=== PATIENT | female | born 1970 | race African-American/Black ===

== ENCOUNTER 2017-12-20 08:10 | Day surgery (SDC) | payer MEDICARE, MEDICAID ==
[2017-12-20 09:50] VITALS: BP 144/86; TEMP 96.6; BMI 29.2
--- NOTE | 2017-12-20 12:22 | RAD ---
CERVICAL SPINE FIVE VIEWS INCLUDING FLEXION AND EXTENSION LATERAL VIEWS: History: 47-year-old female with history of radiculopathy. FINDINGS: Anterior cervical fusion changes at C3-4, left ICD. C1 and C2 odontoid are obscured on the AP open mo uth view. No significant abnormal translation between flexion and extension. IMPRESSION: Cervical spondylosis. Anterior cervical fusion changes of C3-4. No significant acute abnormal transla tion between flexion and extension. POS: [facility]
--- NOTE | 2017-12-20 12:52 | RAD ---
LUMBAR SPINE: HISTORY: Radiculopathy. COMPARISON: None. FINDINGS: There is posterior spinal fusion and laminectomy changes at L3-L5 without diskectomy. Adequate locat ion of the disk spacers. There is SI joint fusion bilaterally. No significant listhesis. No hardware complication. Mild joint narrowing at the L5-S1 disk space with sclerosis. There is narrowing of the L2-L3 and L1-L2 spinous processes. IMPRESSION: Mild to moderate spondylosis. No acute abnormality. No evidence for hardware failure. POS: [facility]
--- NOTE | 2017-12-20 13:16 | RAD ---
LUMBAR MYELOGRAM: HISTORY: Radiculopathy. COMPARISON: None. TECHNIQUE: The patient was brought to the fluoroscopy suite. All questions were answered. A time out was perfo rmed. Informed consent was obtained. The patient's back was prepped and draped in a normal sterile fashion, and 2 mL of Lidocaine was inst illed into the superficial and deep soft tissues. Using a 22 gauge spinal needle, the thecal sac was accessed at the L4-L5 level, and 11 mL of contrast was instilled into the thecal sac. The patient t olerated the procedure well without complications. IMPRESSION: Technically successful fluoroscopic guided cervical and lumbar myelogram. CT to follow. POS: [facility]
--- NOTE | 2017-12-20 13:31 | CT ---
CT CERVICAL SPINE WITH CONTRAST: HISTORY: Neck pain. Radiculopathy. COMPARISON: None. FINDINGS: The cerebellar tonsils remain above the foramen magnum. The mastoids are clear. No cervical adenopa thy. The thyroid appears unremarkable. The lung apices are clear. There is ACDF hardware at C3-C4 without hardware complication. There is fusion of the C3-C4 disk. No fracture. Focal kyphosis at C4-C5 with low grade anterolisthesis, approximately 2 mm. There is narrowing of the atlantodental interval. There is chronic remodeling and thinning of the an terior arch of C1. Levels are as follows: C2-C3: Facets are normal. No significant neural foraminal or spinal canal narrowing. C3-C4: Prior diskectomy and fusion. There is some left uncinate process hypertrophy. Mild left-sindy ed neural foraminal narrowing. The spinal canal measures over a centimeter. C4-C5: There is 2 mm of anterolisthesis. There is mild narrowing of the facet joints. There is foc al abutment of the ventral cord against the C4-C5 disk due to the anterolisthesis. The spinal canal at this level measures over a centimeter. Mild left-sided neural foraminal narrowing due to uncinate process hypertrophy. C5-C6: Large anterior bridging osteophytes. The spinal canal is not narrowed. No significant neura l foraminal narrowing. C6-C7: Low grade uncinate process hypertrophy. No neural foraminal or spinal canal narrowing. IMPRESSION: 1. Intact anterior cervical diskectomy and fusion hardware at C3-C4 without hardware complication. 2. Focal mild kyphosis of C4-C5 with 2 mm of anterolisthesis causing some very low grade narrowing o f the ventral cerebrospinal fluid space. 3. Low grade left-sided neural foraminal narrowing at C3-C4 and C4-C5 due to the uncinate process hy pertrophy. POS: [facility]
--- NOTE | 2017-12-20 13:40 | CT ---
CT LUMBAR SPINE WITH CONTRAST: Date: 12/20/17 HISTORY: Back pain. Radiculopathy. COMPARISON: Radiographs from same day. FINDINGS: There is a hypodensity superior pole left kidney measuring fluid attenuation likely a cyst. No retrop eritoneal adenopathy. Mild bilateral paraspinal musculature atrophy. There is posterior spinal fusion L3-L5 without hardware complication. Bilateral SI joint effusion S1- S3. Levels are as follows: T12-L1: No significant neural foraminal or spinal canal narrowing. L1-2: Low grade left paracentral and lateral recess posterior disc protrusion. There is subsequent moderate left-sided neural foraminal narrowing. Spinal canal is not significantly narrowed. L2-3: Mild circumferential disc bulge and disc space height loss. Mild ligamentum flavum hypertrophy. Mild facet arthropathy. The spinal canal measures 8.0 mm. Mild left-sided neural foraminal narrowing. L3-4: Diskectomy changes and fusion. No spinal canal or neural foraminal narrowing. L4-5: Diskectomy changes and fusion. No significant neural foraminal or spinal canal narrowing. L5-S1: Diskectomy changes and fusion. No significant neural foraminal or spinal canal narrowing. IMPRESSION: 1. Mild spondylosis centered at L1-2 and L2-3. 2. Severe narrowing of the L3-4 and moderate narrowing of the L2-3 spinous processes with sclerosis and erosions. POS: [facility]
== END 2017-12-20 12:00 | disposition home or self-care (01) ==
LOC: RAD 08:10
PROVIDERS: ATTEND Neurological Surgery
PROC: B02B1ZZ Computerized Tomography (CT Scan) of Spinal Cord using Low Osmolar Contrast (ICD-10-PCS; principal; 2017-12-20)
DX: M47.22 Other spondylosis with radiculopathy, cervical region (principal); M47.26 Other spondylosis with radiculopathy, lumbar region; I42.8 Other cardiomyopathies; I10 Essential (primary) hypertension; E78.5 Hyperlipidemia, unspecified; J45.909 Unspecified asthma, uncomplicated; Z98.1 Arthrodesis status; Z79.52 Long term (current) use of systemic steroids; Z79.82 Long term (current) use of aspirin; Z79.899 Other long term (current) drug therapy
CPT/HCPCS: 62305; 72050; 72120; 72126; 72132

== ENCOUNTER 2018-03-07 07:47 | Outpatient (CLI) | payer MEDICARE, MEDICAID | END 2018-03-07 07:48 | disposition home or self-care (01) | LOC: BICULT 07:47 | PROVIDERS: ATTEND Internal Medicine | DX: N28.1 Cyst of kidney, acquired (principal) | CPT/HCPCS: 76770 ==

== ENCOUNTER 2018-11-14 10:43 | Outpatient (CLI) | payer MEDICARE, MEDICAID ==
--- NOTE | 2018-11-14 11:47 | RAD ---
TWO VIEWS ABDOMEN: Comparison: None. History: Constipation, abdominal pain. FINDINGS: Supine and upright views of the abdomen shows a nonspecific, nonobstructed bowel gas pattern. No sign ificant stool retention is seen. Extensive post-surgical changes are seen in the lumbar spine and sac roiliac joints. Cholecystectomy clips are seen. IMPRESSION: No evidence of constipation or obstruction. POS: [facility]
== END 2018-11-14 10:44 | disposition home or self-care (01) ==
LOC: BICRAD 10:43
PROVIDERS: ATTEND Physician Assistant Medical
DX: K59.00 Constipation, unspecified (principal); R10.84 Generalized abdominal pain
CPT/HCPCS: 74019

== ENCOUNTER 2019-02-19 07:44 | Outpatient (CLI) | payer MEDICARE, MEDICAID ==
--- NOTE | 2019-02-19 10:42 | CT ---
CT ABDOMEN AND PELVIS WITH IV CONTRAST: DATE: 02/19/2019. PROVIDED CLINICAL HISTORY: Abdominal pain. FINDINGS: There is trace right pleural fluid. There is subsegmental atelectasis at each lung base. Simple-appearing cyst is seen at the superior pole of the left kidney. The liver, spleen, pancreas, kidneys, and adrenal glands demonstrate an otherwise unremarkable CT appearance. Changes of prior cholecystectomy are seen. There is no bowel dilatation, inflammatory fat stranding, free fluid, or lymph node enlargement apparent. The uterus is not visualized and presumed surgically absent. There is no evidence for abdominal wall hernia. Postoperative changes involving the lumbar spine and both sacroiliac joints noted. There is no evide nce for a concerning lytic or blastic osseous lesion. The regional major vascular structures appear unremarkable. IMPRESSION: 1. Trace right pleural fluid. 2. No evidence for an acute process involving the abdomen and pelvis. POS: [facility]
== END 2019-02-19 07:45 | disposition home or self-care (01) ==
LOC: BICCT 07:44
PROVIDERS: ATTEND Surgery
DX: R10.9 Unspecified abdominal pain (principal); J94.8 Other specified pleural conditions
CPT/HCPCS: 74177

== ENCOUNTER 2019-05-29 06:45 | Day surgery (SDC) | payer MEDICARE, MEDICAID ==
[2019-05-28 15:29] VITALS: BMI 29.1
--- NOTE | 2019-05-29 09:16 | RAD ---
RIGHT HIP 2 VIEWS: Date: 05/29/19 HISTORY: Pain. FINDINGS: Hypertrophic osteophytosis changes are noted laterally. Evidence for an os acetabuli. Internal fixati on fusion changes of the right SI joint, as well as postoperative changes of the lumbar spine. No liu dence for acute fracture or dislocation. 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 Postsurgical changes of the lower lumbar spi ne and right SI joint. POS: [facility]
--- NOTE | 2019-05-29 09:35 | CT ---
Lumbar myelogram CT lumbar spine with contrast HISTORY: Worsening low back pain and right hip radiculopathy. Prior surgery. FINDINGS: After explaining the procedure and answering all questions, patient was placed on the fluor oscopy table in prone position and images obtained. Sterile technique, buffered local anesthesia, fluoroscopic guidance, and a posterior midline L4-5 approach were used to carefully advance a 22-gaug e spinal needle tip into the thecal sac. Approximately 10 cc of [id number]-[id number] contrast was carefully instilled into the thecal sac under fluoroscopic control and needle removed. Patient tolerated the pr ocedure well and was transferred to CT in good condition and eventually to the holding area for further monitoring. Fluoroscopy time 0.6 minutes FINDINGS: Vertebral body heights and alignment are maintained. Bilateral pedicle screws, vertical rods, and int erbody disc replacement material at the L3-4-5 levels. T12-L1: Mild osteophytosis. Central canal and neural foramina are patent. L1-2: Mild left posterior lung bilateral disc bulge is stable. Mild to moderate stenosis of the left neural foramen. L2-3: Mild posterior disc bulge and disc space narrowing. Circumferential degenerative changes. Mild to moderate stenosis of the central canal. Mild left foraminal stenosis. Similar to the previous exam. L3-4: Postoperative changes. Central canal and neural foramina are patent. L4-5: Postoperative changes. Central canal and neural foramina are patent. L5-S1: Postoperative changes. Central canal and neural foramina are patent. IMPRESSION: Postoperative and degenerative changes of the lumbar spine as detailed above. Mild to mod erate central canal stenosis at the L2-3 level. Findings are stable compared to 12/20/2017.
== END 2019-05-29 09:40 | disposition home or self-care (01) ==
LOC: RAD 06:45 → EDSTATUS 08:00 → RAD 09:40
PROVIDERS: ATTEND Neurological Surgery
PROC: B02B1ZZ Computerized Tomography (CT Scan) of Spinal Cord using Low Osmolar Contrast (ICD-10-PCS; principal; 2019-05-29)
DX: M48.061 Spinal stenosis, lumbar region without neurogenic claudication (principal); M51.16 Intervertebral disc disorders with radiculopathy, lumbar region; M47.26 Other spondylosis with radiculopathy, lumbar region; I10 Essential (primary) hypertension; J45.909 Unspecified asthma, uncomplicated; I42.9 Cardiomyopathy, unspecified; Z79.51 Long term (current) use of inhaled steroids; Z79.82 Long term (current) use of aspirin; Z79.899 Other long term (current) drug therapy; Z98.1 Arthrodesis status; Z98.890 Other specified postprocedural states
CPT/HCPCS: 62304; 72132

== ENCOUNTER 2021-10-26 07:54 | Outpatient (CLI) | payer MEDICARE, MEDICAID ==
[2021-10-26] MEDS ORDERED: Iopamidol 370 76% 100 ML VIAL ONE (11:37)
== END 2021-10-26 07:55 | disposition home or self-care (01) ==
LOC: CT 07:54
PROVIDERS: ATTEND Physician Assistant Medical
DX: R11.2 Nausea with vomiting, unspecified (principal); R14.0 Abdominal distension (gaseous); R10.13 Epigastric pain; R63.4 Abnormal weight loss
CPT/HCPCS: 74177; Q9967

== ENCOUNTER 2021-12-31 08:16 | Outpatient (CLI) | payer OTHER, MEDICAID ==
[2021-12-31 23:13] LABS: SARS-CoV-2 PCR by NAA Not Detected (NotDetected)
== END 2021-12-31 08:17 | disposition home or self-care (01) ==
LOC: LABBT 08:16
PROVIDERS: ATTEND Internal Medicine Gastroenterology
DX: Z20.822 Contact with and (suspected) exposure to COVID-19 (principal)
CPT/HCPCS: U0003; U0005

== ENCOUNTER 2022-01-04 10:12 | Day surgery (SDC) | payer OTHER, MEDICAID ==
[2022-01-01 09:36] VITALS: BMI 28.3
[2022-01-04] MEDS ORDERED: PROPOFOL 200 MG/20 ML VIAL ONE (12:22)
[2022-01-04] MEDS ORDERED: Lidocaine 1% PF 5 ML VIAL ONE (12:22)
== END 2022-01-04 13:30 | disposition home or self-care (01) ==
LOC: SDC 10:12
PROVIDERS: ATTEND Internal Medicine Gastroenterology
PROC: 3E0G8GC Introduction of Other Therapeutic Substance into Upper GI, Via Natural or Artificial Opening Endoscopic (ICD-10-PCS; principal; 2022-01-04)
DX: K31.84 Gastroparesis (principal); I11.0 Hypertensive heart disease with heart failure; I50.9 Heart failure, unspecified; E78.00 Pure hypercholesterolemia, unspecified; G47.30 Sleep apnea, unspecified; Z79.899 Other long term (current) drug therapy; Z95.810 Presence of automatic (implantable) cardiac defibrillator; Z98.1 Arthrodesis status
CPT/HCPCS: 43236; J0585; J2704

== ENCOUNTER 2022-05-12 07:53 | Outpatient (CLI) | payer OTHER, MEDICAID | END 2022-05-12 07:54 | disposition home or self-care (01) | LOC: NM 07:53 | PROVIDERS: ATTEND Internal Medicine Gastroenterology | DX: K31.84 Gastroparesis (principal); K59.09 Other constipation; R10.13 Epigastric pain | CPT/HCPCS: 78264; A9541 ==

== ENCOUNTER 2023-07-25 08:55 | Day surgery (SDC) | payer OTHER, MEDICAID ==
[2023-07-22 11:25] VITALS: BMI 23.5
[2023-07-25] MEDS ORDERED: PROPOFOL 60 ML ONE (10:32)
[2023-07-25] MEDS ORDERED: Lidocaine 2% PF 5 ML VIAL ONE (10:40)
== END 2023-07-25 11:50 | disposition home or self-care (01) ==
LOC: SDC 08:55
PROVIDERS: ATTEND Internal Medicine Gastroenterology
PROC: 0DJ08ZZ Inspection of Upper Intestinal Tract, Via Natural or Artificial Opening Endoscopic (ICD-10-PCS; principal; 2023-07-25)
DX: K31.84 Gastroparesis (principal); K59.00 Constipation, unspecified; K31.89 Other diseases of stomach and duodenum; J45.909 Unspecified asthma, uncomplicated; I11.0 Hypertensive heart disease with heart failure; I50.9 Heart failure, unspecified; E78.00 Pure hypercholesterolemia, unspecified; Z95.0 Presence of cardiac pacemaker; Z90.49 Acquired absence of other specified parts of digestive tract; Z79.899 Other long term (current) drug therapy
CPT/HCPCS: J2001; J2704

== ENCOUNTER 2023-08-09 08:07 | Outpatient (CLI) | payer OTHER, MEDICAID | END 2023-08-09 08:08 | disposition home or self-care (01) | LOC: MRI 08:07 | PROVIDERS: ATTEND Orthopaedic Surgery | DX: M75.102 Unspecified rotator cuff tear or rupture of left shoulder, not specified as traumatic (principal) ==

== ENCOUNTER 2023-10-18 13:39 | Outpatient (CLI) | payer OTHER, MEDICAID ==
[2023-10-18 14:42] LABS: #Monocytes 0.2 10x3/uL (0.0-1.1); #Neutrophils 4.4 10x3/uL (1.5-8.4); %Basophils 0.5 % (0.0-2.0); %Eosinophils 0.4 % (0.0-6.0); %Lymphocytes 19.1 % (18.0-47.0); %Monocytes 2.8 % (0.0-10.0); %Neutrophils 76.8 % (40.0-75.0); Hematocrit 38.9 % (34.9-44.5); Hemoglobin 13.1 g/dL (12.0-15.5); Mean Corpuscular HGB CONC 33.7 g/dL (32.0-36.0); Mean Corpuscular Hemoglobin 29.6 pg (27.0-33.0); Mean Corpuscular Volume 87.8 fl (81.6-98.3); Mean Platelet Volume 10.2 fl (7.4-10.4); Platelet Count 263 10x3/uL (150-450); RBC Distribution Width 13.5 % (11.5-14.5); Red Blood Cell (RBC) Count 4.43 10x6/uL (3.90-5.03); White Blood Cell (WBC) Count 5.7 10x3/uL (3.5-10.5)
[2023-10-18 14:56] LABS: ALT (SGPT) 8 U/L (8-55); AST (SGOT) 13 U/L (5-34); Albumin 4.6 g/dL (3.5-5.0); Alkaline Phosphatase 91 U/L (40-110); Anion Gap 12 mmol/L (10-20); BUN (Urea Nitrogen) 14 mg/dL (9.8-20.1); Bilirubin, Total 0.7 mg/dL (0.2-1.2); Calc. Creatinine Clearance 0 mL/min (70-130); Calcium 9.6 mg/dL (7.8-10.44); Carbon Dioxide 27 mmol/L (22-29); Chloride 108 mmol/L (98-107); Estimated GFR 68; Globulin 2.4 g/dL (2.4-3.5); Glucose 98 mg/dL (70-105); Potassium 3.5 mmol/L (3.5-5.1); Sodium 143 mmol/L (136-145)
[2023-10-19 12:56] LABS: Hemoglobin A1c 5.5 % (4.0-6.0)
== END 2023-10-18 13:40 | disposition home or self-care (01) ==
LOC: LABBT 13:39
PROVIDERS: ATTEND Specialist
DX: Z01.818 Encounter for other preprocedural examination (principal); K31.84 Gastroparesis
CPT/HCPCS: 80053; 83036; 85025; 93005; 93010

== ENCOUNTER 2023-10-18 14:00 | Inpatient (IN) | payer OTHER, MEDICAID ==
[2023-11-01] MEDS ORDERED: CEFAZOLIN 2 GM VIAL ONE (07:27)
[2023-11-01] MEDS ORDERED: Ketorolac Tromethamine 30 MG (1 mL) VIAL ONE (07:27)
[2023-11-01] MEDS ORDERED: Heparin 5,000 UNITS/ML VIAL ONE (07:27)
[2023-11-01] MEDS ORDERED: Acetaminophen 500 MG TAB ONE (07:27)
[2023-11-01] MEDS ORDERED: Sodium Chloride 0.9% 100 ML ONE (07:28)
[2023-11-01] MEDS ORDERED: Bupivacaine PF 0.5% 30 ML VIAL ONE (08:35)
[2023-11-01] MEDS ORDERED: fentaNYL 50 mcg/mL 1 mL Vial ONE (08:35)
[2023-11-01] MEDS ORDERED: Midazolam HCl 2 mg/2 ml Vial ONE ×2 (08:35→10:13)
[2023-11-01] MEDS ORDERED: Morphine 2 MG/ML VIAL ONE (08:41)
[2023-11-01] MEDS ORDERED: EPINEPHrine 1 MG/ML VIAL ONE (08:47)
[2023-11-01] MEDS ORDERED: Lidocaine 1% (PF) 30 ML VIAL ONE (08:48)
[2023-11-01] MEDS ORDERED: Ondansetron PF 4 MG/2 ML Vial ONE (10:12)
[2023-11-01] MEDS ORDERED: Rocuronium Bromide 10 MG/ML (10ML VIAL) ONE (10:12)
[2023-11-01] MEDS ORDERED: Dexamethasone 4 mg/ml Vial ONE (10:12)
[2023-11-01] MEDS ORDERED: Esmolol 100 MG/10 ML VIAL ONE (10:12)
[2023-11-01] MEDS ORDERED: PROPOFOL 20 ML ONE (10:13)
[2023-11-01] MEDS ORDERED: fentaNYL PF 100 MCG/2 ML SYRINGE ONE (10:13)
[2023-11-01] MEDS ORDERED: HYDROmorphone 2 MG/ML VIAL ONE (11:01)
[2023-11-01] MEDS ORDERED: Phenylephrine 10 MG/ML VIAL ONE (11:07)
[2023-11-01] MEDS ORDERED: ePHEDrine Sulfate 50 MG/10 ML VIAL ONE (11:31)
[2023-11-01] MEDS ORDERED: SUGAMMADEX SODIUM 200 MG/2 ML VIAL ONE (13:34)
[2023-11-01] MEDS ORDERED: Dextrose 5% in Water 1,000 ML IV PRN (13:46)
[2023-11-01] MEDS ORDERED: Dextrose 50% Abboject 50 ML SYRINGE SLOW IVP PRN (13:46)
[2023-11-01] MEDS ORDERED: hydrALAZINE 20 MG/ML VIAL SLOW IVP PRN (13:46)
[2023-11-01] MEDS ORDERED: tiZANidine HCl 4 MG TAB PO PRN (13:46)
[2023-11-01] MEDS ORDERED: Promethazine HCl 25 MG/ML VIAL IM PRN (13:46)
[2023-11-01] MEDS ORDERED: Glucagon 1 MG/ML KIT IM PRN (13:46)
[2023-11-01] MEDS ORDERED: Morphine 2 MG/ML VIAL SLOW IVP PRN (13:46)
[2023-11-01] MEDS ORDERED: Ipratropium/Albuterol 3 ML NEB NEB PRN (13:46)
[2023-11-01] MEDS ORDERED: Ondansetron PF 4 MG/2 ML Vial IVP PRN (13:46)
[2023-11-01] MEDS ORDERED: diphenhydrAMINE 50 MG/ML VIAL IVP PRN (13:46)
[2023-11-01] MEDS ORDERED: D5 1/2 NS w/20 mEq KCL 1,000 ML ONE (14:18)
[2023-11-01] MEDS ORDERED: HYDROmorphone 0.5 MG/0.5 ML SYRINGE ONE (14:34)
[2023-11-01] MEDS ORDERED: Albuterol 2.5 MG (3 mL) NEB NEB PRN (15:13)
[2023-11-01 17:17] VITALS: BMI 21.3
[2023-11-01] MEDS: Ketorolac Tromethamine 30 MG (1 mL) VIAL IVP SCH ×2 (17:27→23:05)
[2023-11-01] MEDS: Mometasone 200 MCG/Formoterol 5 MCG 120 PUFF INHALER INH SCH (18:18)
[2023-11-01] MEDS: D5 1/2 NS w/20 mEq KCL 1,000 ML IV SCH (18:48)
[2023-11-01] MEDS: Isosorbide Dinitrate 20 MG TAB PO SCH ×2 (18:48→21:10)
[2023-11-01] MEDS: Carvedilol 25 MG TAB PO SCH (20:08)
[2023-11-01] MEDS: Atorvastatin Calcium 20 MG TAB PO SCH (20:08)
[2023-11-01] MEDS: Morphine 4 MG/ML VIAL SLOW IVP PRN (20:09)
[2023-11-01] MEDS: Sacubitril 49 MG/Valsartan 51 MG TABLET PO SCH (21:10)
[2023-11-01] MEDS: Minoxidil 2.5 MG TAB PO SCH (21:10)
[2023-11-01] MEDS: Acetaminophen 325 MG (10.15 ML) UDCUP PO PRN (23:05)
[2023-11-02 04:54] LABS: #Eosinphils 0.1 thou/uL (0.0-0.7); #Monocytes 0.8 thou/uL (0.11-0.59); #Neutrophils 14.8 thou/uL (1.40-6.50); %Basophils 0.2 % (0.0-1.0); %Eosinophils 0.8 % (0.0-10.0); %Lymphocytes 8.7 % (21.0-51.0); %Monocytes 4.5 % (0.0-10.0); %Neutrophils 85.4 % (42.0-75.0); Hematocrit 36.1 % (36.0-47.0); Hemoglobin 11.9 g/dL (12.0-16.0); Mean Corpuscular Hemoglobin 29.8 pg (27.0-31.0); Mean Corpuscular Volume 90.5 fl (78.0-98.0); Mean Platelet Volume 11.6 fL (7.4-10.4); Platelet Count 146 10x3/uL (130-400); RBC Distribution Width 13.7 % (11.5-14.5); Red Blood Cell (RBC) Count 3.99 mill/uL (4.20-5.40); White Blood Cell (WBC) Count 17.3 10x3/uL (4.8-10.8)
[2023-11-02 05:25] LABS: Anion Gap 12 mmol/L (10-20); BUN (Urea Nitrogen) 11 mg/dL (9.8-20.1); Calc. Creatinine Clearance 68 mL/min (70-130); Calcium 8.2 mg/dL (7.8-10.44); Carbon Dioxide 22 mmol/L (22-29); Chloride 111 mmol/L (98-107); Estimated GFR 71; Glucose 109 mg/dL (70-105); Potassium 3.6 mmol/L (3.5-5.1); Sodium 141 mmol/L (136-145)
[2023-11-02] MEDS ORDERED: Non-Formulary Item 1 EACH (Losartan Potassium [Losartan Potassium] 100 MG Tablet) PO SCH (09:00)
[2023-11-02] MEDS ORDERED: Linaclotide [Linzess] 290 MCG Capsule PO SCH (09:00)
[2023-11-02] MEDS: Enoxaparin 40 MG (0.4 mL) SYRINGE SC SCH (10:27)
[2023-11-02] MEDS: DULoxetine 60 MG CAP PO SCH (10:29)
[2023-11-02] MEDS: Glycopyrrolate 1 MG TAB PO SCH (10:39)
[2023-11-02] MEDS: Amlodipine 10 MG TAB PO SCH (10:39)
[2023-11-02] MEDS: Spironolactone 100 MG TAB PO SCH (10:40)
[2023-11-02 13:24] VITALS: BP 136/83; TEMP 98.7
[2023-11-02] MEDS: Pantoprazole 40 MG VIAL IVP SCH (15:14)
== END 2023-11-02 15:15 | disposition home or self-care (01) | DRG 327 ==
LOC: SURG A 11-01 06:55 → SURG B 11-01 17:16
PROVIDERS: ADMIT Specialist; ATTEND Specialist
PROC: 0D164ZA Bypass Stomach to Jejunum, Percutaneous Endoscopic Approach (ICD-10-PCS; principal; 2023-11-01)
PROC: 8E0W4CZ Robotic Assisted Procedure of Trunk Region, Percutaneous Endoscopic Approach (ICD-10-PCS; 2023-11-01)
DX: K31.84 Gastroparesis (principal); I42.8 Other cardiomyopathies; E78.5 Hyperlipidemia, unspecified; J45.909 Unspecified asthma, uncomplicated; K59.00 Constipation, unspecified; I50.9 Heart failure, unspecified; I11.0 Hypertensive heart disease with heart failure; M19.90 Unspecified osteoarthritis, unspecified site; M54.12 Radiculopathy, cervical region; E78.00 Pure hypercholesterolemia, unspecified; M47.896 Other spondylosis, lumbar region; Z95.810 Presence of automatic (implantable) cardiac defibrillator; Z90.710 Acquired absence of both cervix and uterus; Z79.82 Long term (current) use of aspirin; Z90.49 Acquired absence of other specified parts of digestive tract
CPT/HCPCS: 36415; 80048; 85025; 94664; 94760; C1889; C9113; J0171; J0665; J1100; J1170; J1644; J1650; J1885; J2001; J2250; J2270; J2272; J2371; J2405; J2704; J3010; J3480; J3490

== ENCOUNTER 2023-11-03 07:47 | Observation (INO) | payer OTHER, MEDICAID ==
[2023-11-03] MEDS ORDERED: Ondansetron PF 4 MG/2 ML Vial ONE (08:14)
[2023-11-03] MEDS ORDERED: Morphine 4 MG/ML VIAL ONE (08:16)
[2023-11-03 08:30] LABS: #Eosinphils 0.2 thou/uL (0.0-0.7); #Monocytes 0.7 thou/uL (0.11-0.59); %Basophils 0.2 % (0.0-1.0); %Eosinophils 1.4 % (0.0-10.0); %Monocytes 6.5 % (0.0-10.0); %Neutrophils 75.7 % (42.0-75.0); Hematocrit 37.2 % (36.0-47.0); Hemoglobin 12.5 g/dL (12.0-16.0); Mean Corpuscular HGB CONC 33.6 g/dL (32.0-36.0); Mean Corpuscular Hemoglobin 30.2 pg (27.0-31.0); Mean Corpuscular Volume 89.9 fl (78.0-98.0); Mean Platelet Volume 10.4 fL (7.4-10.4); Platelet Count 181 10x3/uL (130-400); RBC Distribution Width 13.7 % (11.5-14.5); Red Blood Cell (RBC) Count 4.14 mill/uL (4.20-5.40); White Blood Cell (WBC) Count 10.5 10x3/uL (4.8-10.8)
[2023-11-03 08:43] LABS: INR-International Normal Ratio 1.2
[2023-11-03 08:44] LABS: PTT 32.5 sec (22.9-36.1)
[2023-11-03 08:52] LABS: ALT (SGPT) 540 U/L (8-55); AST (SGOT) 413 U/L (5-34); Albumin 3.9 g/dL (3.5-5.0); Alkaline Phosphatase 85 U/L (40-110); Anion Gap 15 mmol/L (10-20); BUN (Urea Nitrogen) 13 mg/dL (9.8-20.1); Bilirubin, Total 1.1 mg/dL (0.2-1.2); Calc. Creatinine Clearance 0 mL/min (70-130); Chloride 108 mmol/L (98-107); Estimated GFR 72; Globulin 2.8 g/dL (2.4-3.5); Glucose 83 mg/dL (70-105); Lipase 18 U/L (8-78); Potassium 3.4 mmol/L (3.5-5.1); Protein, Total 6.7 g/dL (6.0-8.3); Sodium 143 mmol/L (136-145)
[2023-11-03 08:58] LABS: Carbon Dioxide 23 mmol/L (22-29)
[2023-11-03] MEDS ORDERED: hydrALAZINE 20 MG/ML VIAL SLOW IVP PRN (11:32)
[2023-11-03] MEDS ORDERED: Promethazine HCl 25 MG/ML VIAL IM PRN (11:32)
[2023-11-03] MEDS ORDERED: Dextrose 50% Abboject 50 ML SYRINGE SLOW IVP PRN (11:32)
[2023-11-03] MEDS ORDERED: Dextrose 5% in Water 1,000 ML IV PRN (11:32)
[2023-11-03] MEDS ORDERED: Morphine 2 MG/ML VIAL SLOW IVP PRN (11:32)
[2023-11-03] MEDS ORDERED: Acetaminophen 325 MG (10.15 ML) UDCUP PO PRN (11:32)
[2023-11-03] MEDS ORDERED: Glucagon 1 MG/ML KIT IM PRN (11:32)
[2023-11-03] MEDS ORDERED: diphenhydrAMINE 50 MG/ML VIAL IVP PRN (11:32)
[2023-11-03 11:45] VITALS: BMI 22.7
[2023-11-03] MEDS ORDERED: Albuterol 2.5 MG (3 mL) NEB NEB PRN (12:07)
[2023-11-03] MEDS ORDERED: Nitroglycerin 0.4 MG TAB 1 EACH SL PRN (12:09)
[2023-11-03] MEDS: Ketorolac Tromethamine 30 MG (1 mL) VIAL IVP SCH (12:44)
[2023-11-03] MEDS: D5 1/2 NS w/20 mEq KCL 1,000 ML IV SCH (12:52)
[2023-11-03] MEDS: Isosorbide Dinitrate 20 MG TAB PO SCH (15:54)
[2023-11-03] MEDS: Mometasone 200 MCG/Formoterol 5 MCG 120 PUFF INHALER INH SCH (18:48)
[2023-11-03] MEDS: Atorvastatin Calcium 20 MG TAB PO SCH (20:44)
[2023-11-03] MEDS: Minoxidil 2.5 MG TAB PO SCH (20:44)
[2023-11-03] MEDS: Pantoprazole 40 MG VIAL IVP SCH (20:45)
[2023-11-03] MEDS: Enoxaparin 40 MG (0.4 mL) SYRINGE SC SCH (20:48)
[2023-11-03] MEDS: Ondansetron PF 4 MG/2 ML Vial IVP PRN (20:58)
[2023-11-03] MEDS: Sacubitril 49 MG/Valsartan 51 MG TABLET PO SCH (23:30)
[2023-11-03] MEDS: Carvedilol 25 MG TAB PO SCH (23:30)
[2023-11-04 04:04] LABS: #Eosinphils 0.2 thou/uL (0.0-0.7); #Monocytes 0.7 thou/uL (0.11-0.59); #Neutrophils 3.6 thou/uL (1.40-6.50); %Basophils 0.3 % (0.0-1.0); %Eosinophils 3.9 % (0.0-10.0); %Lymphocytes 26.6 % (21.0-51.0); %Monocytes 11.9 % (0.0-10.0); %Neutrophils 57.1 % (42.0-75.0); Hematocrit 29.6 % (36.0-47.0); Hemoglobin 9.9 g/dL (12.0-16.0); Mean Corpuscular HGB CONC 33.4 g/dL (32.0-36.0); Mean Corpuscular Hemoglobin 30.5 pg (27.0-31.0); Mean Corpuscular Volume 91.1 fl (78.0-98.0); Mean Platelet Volume 10.1 fL (7.4-10.4); Platelet Count 152 10x3/uL (130-400); RBC Distribution Width 13.6 % (11.5-14.5); Red Blood Cell (RBC) Count 3.25 mill/uL (4.20-5.40); White Blood Cell (WBC) Count 6.2 10x3/uL (4.8-10.8)
[2023-11-04 04:35] LABS: Anion Gap 9 mmol/L (10-20); BUN (Urea Nitrogen) 13 mg/dL (9.8-20.1); Calc. Creatinine Clearance 74 mL/min (70-130); Calcium 8.3 mg/dL (7.8-10.44); Carbon Dioxide 24 mmol/L (22-29); Chloride 109 mmol/L (98-107); Estimated GFR 76; Glucose 101 mg/dL (70-105); Potassium 3.1 mmol/L (3.5-5.1); Sodium 139 mmol/L (136-145)
[2023-11-04] MEDS: DULoxetine 60 MG CAP PO SCH (08:28)
[2023-11-04] MEDS: Aspirin Chewable 81 MG TAB PO SCH (08:28)
[2023-11-04 08:29] VITALS: BP 115/72; TEMP 98.2
[2023-11-04] MEDS: Potassium Bicarbonate/Cit Ac 25 MEQ TAB PO SCH (08:29)
== END 2023-11-04 09:44 | disposition home or self-care (01) ==
LOC: ERS 07:47 → SJJU 09:34
PROVIDERS: ADMIT Specialist; ATTEND Specialist
DX: K92.0 Hematemesis (principal); E86.0 Dehydration; Z88.5 Allergy status to narcotic agent; Z88.8 Allergy status to other drugs, medicaments and biological substances
CPT/HCPCS: 36415; 74177; 80048; 80053; 83605; 83690; 85025; 85610; 85730; 96361; 96372; 96374; 96375; 96376; C9113; G0378; J1650; J1885; J2270; J2405; J3480

== ENCOUNTER 2023-12-01 07:02 | Outpatient (CLI) | payer OTHER, MEDICAID ==
[2023-12-01] MEDS ORDERED: Barium Sulfate 96% 176 GM BOT (xray ONLY) ONE (07:17)
[2023-12-01] MEDS ORDERED: E-Z-HD 98% W/W 340GM BOT (x-ray ONLY) ONE (07:17)
== END 2023-12-01 07:03 | disposition home or self-care (01) ==
LOC: RAD 07:02
PROVIDERS: ATTEND Specialist
DX: K31.84 Gastroparesis (principal); R13.10 Dysphagia, unspecified
CPT/HCPCS: 74246

== ENCOUNTER 2024-05-04 06:57 | Outpatient (CLI) | payer OTHER ==
[2024-05-04] MEDS ORDERED: Barium Sulfate 96% 176 GM BOT (xray ONLY) ONE (07:11)
[2024-05-04] MEDS ORDERED: E-Z-HD 98% W/W 340GM BOT (x-ray ONLY) ONE (07:11)
== END 2024-05-04 06:58 | disposition home or self-care (01) ==
LOC: RAD 06:57
PROVIDERS: ATTEND Specialist
DX: K31.84 Gastroparesis (principal); K22.89 Other specified disease of esophagus
CPT/HCPCS: 74246

== ENCOUNTER 2024-06-18 06:45 | Day surgery (SDC) | payer OTHER, MEDICAID ==
[2024-06-15 10:40] VITALS: BMI 17.9
[2024-06-18] MEDS ORDERED: PROPOFOL 40 ML ONE (09:23)
[2024-06-18] MEDS ORDERED: Midazolam HCl 2 mg/2 ml Vial ONE (10:59)
== END 2024-06-18 12:15 | disposition home or self-care (01) ==
LOC: SDC 06:45
PROVIDERS: ATTEND Internal Medicine Gastroenterology
PROC: 0DJ08ZZ Inspection of Upper Intestinal Tract, Via Natural or Artificial Opening Endoscopic (ICD-10-PCS; principal; 2024-06-18)
DX: R10.13 Epigastric pain (principal); R63.4 Abnormal weight loss; K31.84 Gastroparesis; R11.10 Vomiting, unspecified; J45.909 Unspecified asthma, uncomplicated; I50.9 Heart failure, unspecified; E78.00 Pure hypercholesterolemia, unspecified; I10 Essential (primary) hypertension; G47.00 Insomnia, unspecified; Z90.49 Acquired absence of other specified parts of digestive tract; Z95.810 Presence of automatic (implantable) cardiac defibrillator; Z98.0 Intestinal bypass and anastomosis status; Z79.899 Other long term (current) drug therapy; Z98.890 Other specified postprocedural states; Z68.1 Body mass index [BMI] 19.9 or less, adult
CPT/HCPCS: 43235; J2250; J2704